=== PATIENT | male | born 1965 ===

== ENCOUNTER 2022-11-13 09:43 | Inpatient (IN) ==
[2022-11-13] MEDS ORDERED: MoRPHine SULFATE 4 MG/ML 1 ML CARP\\VIAL IV STA (10:01)
[2022-11-13] MEDS ORDERED: ONDANSETRON INJ 2 MG/ML 2 ML VIAL IV STA (10:01)
[2022-11-13] MEDS ORDERED: SODIUM CHLORIDE 0.9% 1000ML 1,000 ML IV STA (10:01)
--- NOTE | 2022-11-13 10:06 | Emergency Department Note ---
Impression & Plan Acute renal failure (ARF), Bilateral ureteral calculi, Hematuria ED Provider Note Provider: Edu Funk MD DATE OF SERVICE: 11/13/2022 CHIEF COMPLAINT: Flank and abdominal pain, nausea, blood in urine HISTORY OF PRESENT ILLNESS: Patient is a 57-year-old gentleman history of CAD with stent, hypertension, kidney stones, splenectomy, and hyperlipidemia presenting here today with his sister. Patient is a refugee from [facility]. Has a history of kidney stones. Seen in the outpatient setting for this several months ago. Presenting today as yesterday and today developed worsening back pa in with abdominal distention more on the left side. No trauma reported. Some blood in the urine noted overnight. Took some ibuprofen last night which allowed him to sleep through the night. Denies any chest pain, fever, or URI symptoms. Denies any pain in the legs. Offer the patient formal translation services, however he declined and wished to use his sister for translation. PAST MEDICAL HISTORY: As noted above MEDICATIONS: Reviewed home medications but did not take anything this morning yet. SOCIAL HISTORY: Originally from [facility] and primarily speaks Montserrat[place] PHYSICAL EXAM: GENERAL: alert and oriented in no acute distress on stretcher Head: normocephalic and atraumatic EYES: No injection, discharge or icterus. NECK: Trachea midline. LUNGS: Airway patent. No retractions. Breath sounds clear HEART: Regular rate and rhythm. No chest wall tenderness ABDOMEN: Soft and non-tender, without guarding or rebound. BACK: No midline tenderness, no SI joint tenderness. Mild left flank tenderness SKIN: Acyanotic, warm, dry, without rashes EXTREMITIES: Without swelling, tenderness or deformity NEUROLOGICAL: No focal deficits. No aphasia. No facial droop or slurred speech. Ambulatory. PDMP was checked without noted issue. Patient's laboratory studies and imaging reviewed. Differential includes Renal colic, UTI, appendicitis, diverticulitis, mesenteric ischemia, aortic pathology, infections, inflammatory bowel disease, PUD, biliary pathology, as well as other pathologies. IMPRESSION/MEDICAL DECISION MAKING: Fairly benign abdomen. Some nausea and vomiting reported with back pain predominantly on the left. Question kidney stone given his history and the reported hematuria. We will check for urine infection. We will complete a CT abdomen pelvis to further delineate other possible etiologies and determine if stone is at play. Ultrasound result from records reviewed from June showed a significantly large stone. Has not seen urology here. Denies a history of intervention with the kidney in the past. Used ibuprofen last night but given some IV pain medication and nausea medicine here as well as IV fluids. Does not appear toxic. No sciatic symptoms reported and doubt this is spinal related. Blood work here without anemia with thrombocytosis of 834 as well as a significantly low white blood cell count 27. Chemistries with an acute kidney injury with an elevated creatinine of more than 6 today with normal potassium and sodium. Slight anion gap. Normal lipase and LFTs. Question of obstructive pathology causing the renal dysfunction. Sent for noncontrast CT scan given this finding. No evidence of fluid overload or hyperkalemia again noted. CT scan shows evidence of bilateral hydronephrosis with obstructing stones. Urine sample pending collection trace amount of blood only outputs at this point. Patient and sister updated at bedside. Patient will require admission with the significant renal dysfunction. Discussed with urology findings and they will plan the OR. Hospitalist will admit. DIAGNOSIS: Acute renal failure, bilateral obstructing ureteral stones DISPOSITION: Evaluated by the hospital Patient was agreeable with this plan. Past Med/Surg History Medical History (Updated 11/13/22 @ 11:48 by Jairo Haro MD) Kidney stones Surgical History (Updated 07/15/22 @ 09:57 by El Calix DO) Hx of splenectomy 1996 Family History (Updated 07/15/22 @ 09:24 by RAFAEL Walters) Denies family history of Ovarian cancer Prostate cancer Myocardial infarction Breast cancer Lung cancer Cancer Social History (Updated 07/15/22 @ 09:25 by RAFAEL Walters) Smoking Status: Never smoker Second Hand Exposure: No; Do You Dip or Chew Tobacco: No; Hx Substance Use: No Preferred Language: Mont[place]at[place] Visual Impairment: Partially Limited Hearing Ability: Normal Scrapper Required: Yes marital status: Current Living Situation: Family Feels Safe at Home: Yes Childhood Exposure to Second-Hand Smoke: Yes caffeine: No Dental Care, Regularly: Yes Physical Activity Frequency: 1-2 Times per Week Allergies Allergies Allergy/AdvReac Type Severity Reaction Status Date / Time No Known Allergies Allergy Verified 11/13/22 12:04 Home Meds Home Medications Medication Instructions Recorded Confirmed ibuprofen 200 mg tablet 400 mg PO Q6H PRN Pain 11/13/22 11/13/22 Previous Rx's Medication Instructions Recorded aspirin 81 mg tablet,delayed 81 mg PO DAILY #90 tabs 07/15/22 release bisoprolol fumarate 5 mg tablet 5 mg PO DAILY #90 tabs 07/15/22 nitroglycerin 0.4 mg sublingual 0.4 mg sublingual Q5M PRN chest 07/15/22 tablet pain #14 tabs simvastatin 40 mg tablet 40 mg PO DAILY #90 tabs 07/15/22 Results & Data (ED) Vital Signs Vital Signs - 24 hr 11/13/22 09:47 11/13/22 11:08 11/13/22 12:17 Temperature Source Temporal Artery Scan Pulse Rate 77 85 Pulse Rate [Apical] 81 Pulse Rhythm Regular Pulse Strength Normal Respiratory Rate 18 16 Respiratory Effort / Characteristics Non-Labored Spontaneous Non-Labored Respiratory Depth Normal Normal Respiratory Pattern Regular Blood Pressure 187/103 H Blood Pressure [Right Arm] 165/105 H Blood Pressure Mean 131 Blood Pressure Mean [Right Arm] 125 Blood Pressure Position Sitting Pulse Oximetry 97 96 Oxygen Delivery Method Room Air Sepsis Recent Fever Within 48 Hours No Sepsis New/Unexplained Change in Mental Status No Sepsis Action Taken by Nursing No Action Required Laboratory Data 11/13/22 10:05 11/13/22 10:05 Lab Results 11/13/22 11/13/22 11/13/22 Range/Units 10:05 10:05 11:04 WBC 27.20 H (4.8-10.8) K/ul RBC 5.80 (4.70-6.10) M/uL Hgb 17.1 (14.0-18.0) g/dl Hct 51.7 (42.0-52.0) % MCV 89.1 (80.0-100.0) fL MCH 29.5 (25.0-34.0) pg MCHC 33.1 (32.0-36.0) g/dL RDW Std Deviation 45.1 (36.4-46.3) fL RDW Coeff of Connie 13.9 (11.5-14.5) % Plt Count 834 H (130-400) K/uL MPV 11.4 (9.4-12.4) fL Immature Gran % (Auto) 1.0 % Neut % (Auto) 75.9 % Lymph % (Auto) 11.5 % [place] % (Auto) 10.2 % Eos % (Auto) 0.7 % Baso % (Auto) 0.7 % Neut # (Auto) 20.63 H (1.40-6.50) K/uL Lymph # (Auto) 3.12 (1.2-3.4) K/uL [place] # (Auto) 2.77 H (0.11-0.59) K/uL Eos # (Auto) 0.20 (0-0.50) K/uL Baso # (Auto) 0.20 (0-0.2) K/uL Immature Gran # (Auto) 0.28 H (0.01-0.20) K/uL Polychromasia 1+ Sodium 136 (136-145) mmol/L Potassium 5.0 (3.5-5.1) mmol/L Chloride 100 (98-107) mmol/L Carbon Dioxide 21 (21-32) mmol/L Anion Gap 15 H (3-11) BUN 58 H (6-23) mg/dl Creatinine 6.70 H* (0.6-1.4) mg/dl Est Cr Clr Drug Dosing 14.1 ml/min Est GFR ( Amer) 9.7 ml/min Est GFR (Non-Af Amer) 8.3 ml/min BUN/Creatinine Ratio 8.7 L (10-20) Glucose 104 H (70-99(Fasting)) mg/dl Calcium 10.0 (8.6-10.3) mg/dl Total Bilirubin 0.6 (0.2-1.0) mg/dl AST 18 (13-39) U/L ALT 15 (7-52) U/L Alkaline Phosphatase 97 (34-104) U/L Total Protein 8.5 H (6.0-8.3) gm/dl Albumin 4.3 (3.4-5.0) gm/dl Globulin 4.2 H (2.5-4.0) gm/dl Albumin/Globulin Ratio 1.0 (0.9-2) Lipase 26 (11-82) U/L SARS-CoV-2, RNA, NAAT NEGATIVE (NEGATIVE) Administered Medications Discontinued Medications Sodium Chloride (Nss 1000ml) 1,000 mls @ 999 mls/hr IV .Q1H1M STA Stop: 11/13/22 11:01 Last Infusion: 11/13/22 11:18 Dose: 0 mls/hr Documented By: Admin: 11/13/22 10:16 Dose: 999 mls/hr Documented By: NA Morphine Sulfate (Morphine Sulfate 4 Mg/Ml 1 Ml Carp\Vial) 4 mg IV NOW STA Stop: 11/13/22 10:02 Last Admin: 11/13/22 10:15 Dose: 4 mg Documented By: NA Ondansetron HCl (Ondansetron Inj 2 Mg/Ml 2 Ml Vial) 4 mg IV NOW STA Stop: 11/13/22 10:02 Last Admin: 11/13/22 10:15 Dose: 4 mg Documented By: NA Imaging Data Radiologist's Impression: Abdomen/Pelvis CT 11/13/22 10:[address] WITHOUT CONTRAST CT DOSE: 1062.57 mGy.cm HISTORY: L flank pain, hematuria, hx stone, JUN TECHNIQUE: Multiaxial CT images of the abdomen and pelvis were performed without contrast. A dose lowering technique was utilized adhering to the principles of ALARA. COMPARISON STUDY: Abdomen and pelvis CT 07/22/2022. FINDINGS: Mild interstitial thickening at the lung bases. No pneumoperitoneum. No pneumatosis. Old, healed left-sided rib fractures. The heart is mildly enlarged. The unenhanced liver, gallbladder, pancreas, left adrenal gland unremarkable. A normal spleen is not identified. Small nodules within the left upper quadrant likely represents residual splenic tissue. Moderate bilateral perinephric edema is noted. No left renal calculi. A 1.3 cm hypodense lesion within the right kidney is incompletely characters on this noncontrast study but favors a cyst. There is a large stone within the right renal pelvis measuring 2.9 x 2.9 cm in length extending into the lower pole infundibulum. 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 Multiple additional stones are seen within the lower pole of the right kidney measuring up to 1 cm. There are approximately 5 stones within the distal left ureter measuring up to 5 mm resulting in moderate left hydroureteronephrosis. There are at least 4 stones within the distal right ureter with the largest measuring 1 cm resulting in moderate right hydroureteronephrosis. Prominent retroperitoneal and periportal lymph nodes. These may be reactive. Moderate calcified plaque within the abdominal aorta which demonstrates mild aneurysmal dilatation measuring up to 3.1 cm. Bladder wall thickening may be due to underdistention. The prostate gland is mildly enlarged. There are few prominent bilateral external iliac lymph nodes measuring up to 13 mm in short axis diameter. Suboptimal evaluation for bowel pathology due to the lack of intravenous and oral contrast. Colonic dive rticulosis. No evidence for acute diverticulitis. No bowel wall thickening or obstruction. Normal appendix. IMPRESSION: 1. Multiple bilateral distal ureteral stones resulting in bilateral moderate hydroureteronephrosis. 2. Right-sided nephrolithiasis. 3. Bladder wall thickening which may be due to underdistention. Recommend correlation with urinalysis to exclude a cystitis. 4. Moderate bilateral perinephric edema/fat stranding which may be secondary to the hydronephrosis. A superimposed pyelonephritis would be difficult to exclude by imaging. 5. Mildly enlarged periportal, retroperitoneal, and pelvic lymph nodes which could be reactive. Consider follow-up abdomen and pelvis CT in 6 months to ensure resolution. 6. Cardiomegaly with mild interlobular septal thickening within the lung bases. This suggests mild congestive change. 7. Additional findings as described above. ACT 112: Negative or not required by law. Electronically signed by: Charly Morton M.D. 11/13/2022 11:24 AM Discharge Plan Visit Data Chief Complaint: Hematuria Stated Complaint: ABDOMINAL PAIN, BLOOD WITH URINATION ED Provider: Edu Funk Discharge Problem: Acute renal failure (ARF), Bilateral ureteral calculi, Hematuria Patient Disposition: Being Evaluated by Hospitalist Forms Stand Alone Forms: [facility] doForms Prescriptions Prescriptions: No Action aspirin 81 mg tablet,delayed release (DR/EC) 81 mg PO DAILY Qty: 90 3RF bisoprolol fumarate 5 mg tablet 5 mg PO DAILY Qty: 90 3RF simvastatin 40 mg tablet 40 mg PO DAILY Qty: 90 3RF nitroglycerin 0.4 mg tablet, sublingual 0.4 mg sublingual Q5M PRN (Reason: chest pain) Qty: 14 2RF Rx Instructions: do not exceed 3 doses per episode ibuprofen 200 mg Tablet 400 mg PO Q6H PRN (Reason: Pain) Referrals Referrals: El Calix DO [Primary Care Provider] - Acute renal failure (ARF) Qualifiers: Acute renal failure type: unspecified Qualified Code(s): N17.9 - Acute kidney failure, unspecified
[2022-11-13 10:38] LABS: Hematocrit (blood only) 51.7 % (42.0-52.0); Hemoglobin 17.1 g/dl (14.0-18.0); Mean Corpuscular Hemoglobin 29.5 pg (25.0-34.0); Mean Corpuscular Hgb Conc 33.1 g/dL (32.0-36.0); Mean Corpuscular Volume 89.1 fL (80.0-100.0); Mean Platelet Volume 11.4 fL (9.4-12.4); Platelet Count 834 K/uL (130-400); RDW Coefficient of Variation 13.9 % (11.5-14.5); RDW Standard Deviation 45.1 fL (36.4-46.3)
[2022-11-13 10:44] LABS: Albumin Level 4.3 gm/dl (3.4-5.0); BUN Creatinine Ratio 8.7 (10-20); Bilirubin,Total 0.6 mg/dl (0.2-1.0); Creatinine Clr Calc Pharmacy 14.1 ml/min; Est GFR (African American) 9.7 ml/min; Est GFR (Non-African American) 8.3 ml/min; Globulin 4.2 gm/dl (2.5-4.0); Total Protein 8.5 gm/dl (6.0-8.3)
[2022-11-13 10:45] LABS: Basophils % (auto) 0.7 %; Eosinophils % (auto) 0.7 %; Immature Granulocytes # (auto) 0.28 K/uL (0.01-0.20); Lymphocytes # (auto) 3.12 K/uL (1.2-3.4); Lymphocytes % (auto) 11.5 %; Monocytes # (auto) 2.77 K/uL (0.11-0.59); Monocytes % (auto) 10.2 %; Neutrophils # (auto) 20.63 K/uL (1.40-6.50); Neutrophils % (auto) 75.9 %; Polychromasia 1+
--- NOTE | 2022-11-13 11:25 | History & Physical Report ---
Date of Service November 13, 2022 Assessment & Plan (1) Acute renal failure due to urinary obstruction: Plan: Nephrolithiasis, chronic with acute obstruction With leukocytosis of 27.2 with neutrophilic predominance and increased immature cells - CT-A/P: 1. Multiple bilateral distal ureteral stones resulting in bilateral moderate hydroureteronephrosis.2. Right-sided nephrolithiasis. 3. Bladder wall thickening which may be due to underdistention. Recommend correlation with urinalysis to exclude a cystitis.4. Moderate bilateral perinephric edema/fat stranding which may be secondary to the hydronephrosis. A superimposed pyelonephritis would be difficult to exclude by imaging.5. Mildly enlarged periportal, retroperitoneal, and pelvic lymph nodes which could be reactive. Consider follow-up abdomen and pelvis CT in 6 months to ensure resolution.6. Cardiomegaly with mild interlobular septal thickening within the lung bases. This suggests mild congestive change.7. Additional findings as described above. Platelet count 834 likely reactive -Given underlying leukocytosis, some chills overnight, and infected appearing UA we will treat for concurrent UTI with Rocephin - Uro consulted for cystoscopy/stent ARF, acute unstable Suspect obstructive acute renal failure, admitting creatinine 6.70 Last creatinine 06/2022 baseline 1.16 No sodium derangements, patient is not overtly fluid overloaded but with the beginnings of congestive change noted on CT. No hypoxia Potassium upper limit of normal 5.0 Treatment of underlying obstruction as otherwise noted. If not improving post obstruction relief, consult nephrology Defer Lokelma BMP every 4 hours Complicated UTI, acute unstable Infected appearing UA, leukocytosis In the setting of obstructive uropathy/nephrolithiasis Continue Rocephin UCx pending CAD, history of PCI, chronic stable Continue aspirin 81 mg daily Continue simvastatin 40 mg daily? Benefit of conversion high-dose on discharge. 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 T waves are not peaked Patient is clinically without chest pain, chest pressure, exertional angina, shortness of breath at any point in the last week Hemoglobin 17.1 on admission Continue aspirin, bisoprolol. Resume simvastatin/valsartan postoperatively Given concurrent acute renal failure with cardiac history we will follow patient on medical telemetry at this time Patient's family will bring in stent card. Unclear type of stent or territory, this was placed in 2018 in the [facility] Traumatic splenectomy, chronic stable In distant past, abdomen surgical site well-healed No complications of this per patient DVT prophylaxis: SCDs, heparin post procedure due to JUN Diet: N.p.o. pending surgical evaluation/cystoscopy Disposition: Medical telemetry CODE STATUS: Full code (2) Bilateral ureteral calculi: (3) HLD (hyperlipidemia): (4) Presence of stent in coronary artery in patient with coronary artery disease: (5) Hypertension: (6) Complicated UTI (urinary tract infection): History of Present Illness Primary Care Provider: DO Jose Alberto Mendoza is a 57-year-old male [place] refugee who speaks [place] requiring translation assistance with a past medical history of CAD s/p PCI, hypertension, nephrolithiasis, splenectomy, hyperlipidemia who presents for worsening back and flank pain left greater than the right worsening over the last 48 hours. Patient has declined translation services and wishes for her sister to translate. Pt reports came to the [facility] in April, is a refugee. Has been told he has kidney rocks int h epast, but no obstructive problems. Had ultrasound in June and was found to have kidney stones which were large, but nonosbtructive. Sees PCP at [facility]. Current symptoms include pain in the back with blood in the urine started about 3 days ago. Progressively worsening pain in the back, flank, and low abdomen worsening over the last 2 days. No fevers, +nausea, +vomiting, +shaking chills last night. No diarrhea. yesterday was able to pee, stopped being this morning an dincreased pain. Small amounts of blood passing. Hx of CAD with PCI. Had 1 stend 2018 in [facility]. Has a stent card at home. - Was on bisprolol, aspirin, simvastatin, valsartan. 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 Did not take medications this morning Surgical History: Reviewed. splenectomy post traumatic. Family history: Reviewed Allergies: Reviewed. NKDA. Social History: No tobacco product use, no alochol use. Code Status: Full Code Allergies Allergy/AdvReac Type Severity Reaction Status Date / Time No Known Allergies Allergy Verified 11/05/22 08:46 Home Medications Medication Instructions Recorded Confirmed Type aspirin 81 mg tablet,delayed 81 mg PO DAILY #90 tabs 07/15/22 11/05/22 Rx release bisoprolol fumarate 5 mg tablet 5 mg PO DAILY #90 tabs 07/15/22 11/05/22 Rx nitroglycerin 0.4 mg sublingual 0.4 mg sublingual Q5M PRN chest 07/15/22 11/05/22 Rx tablet pain #14 tabs simvastatin 40 mg tablet 40 mg PO DAILY #90 tabs 07/15/22 11/05/22 Rx valsartan 160 mg tablet 160 mg PO DAILY #90 tabs 07/15/22 11/05/22 Rx Past Med/Surg History Medical History (Updated 11/13/22 @ 11:48 by Jairo Haro MD) Kidney stones Surgical History (Updated 07/15/22 @ 09:57 by El Calix DO) Hx of splenectomy 1997 Family History (Updated 07/15/22 @ 09:24 by RAFAEL Walters) Denies family history of Ovarian cancer Prostate cancer Myocardial infarction Breast cancer Lung cancer Cancer Social History (Updated 07/15/22 @ 09:25 by RAFAEL Walters) Smoking Status: Never smoker Second Hand Exposure: No; Do You Dip or Chew Tobacco: No; Hx Substance Use: No Preferred Language: [facility] Visual Impairment: Partially Limited Hearing Ability: Normal Dough Sheeter Required: Yes marital status: Current Living Situation: Family Feels Safe at Home: Yes Childhood Exposure to Second-Hand Smoke: Yes caffeine: No Dental Care, Regularly: Yes Physical Activity Frequency: 1-2 Times per Week Review of Systems Review of Systems: All systems reviewed & are unremarkable except as noted in HPI & below Physical Exam Physical Exam: General: A&Ox3. NAD. Cooperative. Patient is non-Spanish speaking, speaks Maori. 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 HEENT: Atraumatic, normocephalic. Vision/hearing grossly intact Pulm: CTAB A&P. Trace basilar crackles, otherwise-wheezes, -rales, -rhonchi. Symmetrical chest rise. No increased work of breathing. No respiratory distress. Cardiac: RRR, -mrg. Radial pulses intact and symmetrical. Abdominal: Midline scar from past splenectomy well-healed. Tender to palpation in right lower quadrant. Upper quadrants nontender. Abdomen is soft and without rebound/guarding. Flank pain bilaterally right greater than left Extremities: Warm, dry. No pitting edema Results & Data Results & Data Vital Signs (Past 12 Hours) Vital Signs Pulse Pulse Resp BP BP Pulse Ox O2 Del Method 11/13/22 11:08 81 16 165/105 H 96 11/13/22 09:47 77 18 187/103 H 97 Room Air PG Care Time/CCT Total # of Minutes Spent Total Time Spent with Patient: Total time spent is greater than 50% in coordination of care (as documented) at patient's floor/unit and/or counseling patient: Coding Level of Care Code 39184 INT INP/OBS CARE 3/75MIN Diagnoses Acute renal failure due to urinary obstruction N17.9; N13.9 Bilateral ureteral calculi N20.1 HLD (hyperlipidemia) E78.5 Presence of stent in coronary artery in patient with coronary artery disease I25.10; Z95.5 Hypertension I10 Complicated UTI (urinary tract infection) N39.0
--- NOTE | 2022-11-13 11:26 | CT Scan Report ---
ABDOMEN AND PELVIS CT WITHOUT CONTRAST CT DOSE: 1062.57 mGy.cm HISTORY: L flank pain, hematuria, hx stone, JUN TECHNIQUE: Multiaxial CT images of the abdomen and pelvis were performed without contrast. A dose lo wering technique was utilized adhering to the principles of ALARA. COMPARISON STUDY: Abdomen and pelvis CT 07/22/2022. FINDINGS: Mild interstitial thickening at the lung bases. No pneumoperitoneum. No pneumatosis. Old, h ealed left-sided rib fractures. The heart is mildly enlarged. The unenhanced liver, gallbladder, panc reas, left adrenal gland unremarkable. A normal spleen is not identified. Small nodules within the le ft upper quadrant likely represents residual splenic tissue. Moderate bilateral perinephric edema is noted. No left renal calculi. A 1.3 cm hypodense lesion within the right kidney is incompletely gretel cters on this noncontrast study but favors a cyst. There is a large stone within the right renal pelv is measuring 2.9 x 2.9 cm in length extending into the lower pole infundibulum. This appears to repre sent a partial staghorn calculus. Multiple additional stones are seen within the lower pole of the ri ght kidney measuring up to 1 cm. There are approximately 5 stones within the distal left ureter measu ring up to 5 mm resulting in moderate left hydroureteronephrosis. There are at least 4 stones within the distal right ureter with the largest measuring 1 cm resulting in moderate right hydroureteronephr osis. Prominent retroperitoneal and periportal lymph nodes. These may be reactive. Moderate calcified plaque within the abdominal aorta which demonstrates mild aneurysmal dilatation measuring up to 3.1 cm. Bladder wall thickening may be due to underdistention. The prostate gland is mildly enlarged. The re are few prominent bilateral external iliac lymph nodes measuring up to 13 mm in short axis diamete r. Suboptimal evaluation for bowel pathology due to the lack of intravenous and oral contrast. Coloni c diverticulosis. No evidence for acute diverticulitis. No bowel wall thickening or obstruction. Norm al appendix. IMPRESSION: 1. Multiple bilateral distal ureteral stones resulting in bilateral moderate hydroureteronephrosis. 2. Right-sided nephrolithiasis. 3. Bladder wall thickening which may be due to underdistention. Recommend correlation with urinalysis to exclude a cystitis. 4. Moderate bilateral perinephric edema/fat stranding which may be secondary to the hydronephrosis. A superimposed pyelonephritis would be difficult to exclude by imaging. 5. Mildly enlarged periportal, retroperitoneal, and pelvic lymph nodes which could be reactive. Consi laney follow-up abdomen and pelvis CT in 6 months to ensure resolution. 6. Cardiomegaly with mild interlobular septal thickening within the lung bases. This suggests mild co ngestive change. 7. Additional findings as described above. ACT 112: Negative or not required by law. Electronically signed by: Charly Morton M.D. 11/13/2022 11:24 AM
--- NOTE | 2022-11-13 12:34 | Urology Consultation ---
Date of Consultation November 13, 2022 Assessment & Plan (1) Acute renal failure due to urinary obstruction: (2) Bilateral ureteral calculi: 57-year-old male from [facility] with history of kidney stones presented to the emergency department today with worsening back pain, hematuria and difficulty voiding and has been admitted for bilateral obstructing stones and acute renal failure. - He is nontoxic, hemodynamically stable. - Labs reviewed -creatinine 6.70, WBC 27.20, hemoglobin 17.1. - No urinalysis at time of exam. - He was treated with IV Rocephin in ED. CT a/p on arrival independently reviewed and notable for multiple bilateral distal ureteral stones resulting in bilateral moderate hydroureteronephrosis, right-sided nephrolithiasis; moderate bilateral perinephric edema noted. CT findings reviewed with patient and family. Discussed recommendation to proceed with bilateral ureteral stent placement emergently due to bilateral obstructing stones and acute renal failure. Patient and family are understanding and wish to proceed with surgery. Proceed with Cystoscopy, bilateral retrograde pyelogram, and bilateral ureteral stent placement. Risks and benefits to be reviewed with patient by Dr. Lee. OR notified. Patient was treated with Rocephin preoperatively. Keep NPO. Attending note: Independently evaluated, examined, interviewed, and assessed, agree with above. Discussed findings and concerns. Discussed bilateral obstruction. Discussed large stone burden especially on the right. Discussed need for intervention in order to manage the acute renal failure. Discussed bilateral obstruction and possible anuria with major concerns about possible electrolyte and fluid management issues. Discussed possibility of severe infection. Discussed possibility of pyelonephritis. Reviewed extensively options with patient and patient's family. Patient has limited Kosovan language knowledge and relied on assistance with the family in order to discuss issues and to assist with asking and answering any questions. Patient's imaging was reviewed interpreted by myself. It is currently not having severe fevers. Pulse is 85. Blood pressure 165/105. Imaging is showing bilateral distal obstructing stones with large stone burden on right side. Patient's labs were all reviewed. White count was 27.2. Creatinine is up to 6.7. Patient had a COVID test which was negative. Extensive conversation. Patient's past medical history as well as possible issues and surgical Gtao were all reviewed. Reviewed concerns and issues moving forward. Risks and benefits discussed at length for procedure. These include bleeding, infection, injury to surrounding tissues or organs, and risks associated with anesthesia. Patient states understanding and agrees to proceed. Will sign consent and schedule. Plan for cystoscopy with bilateral stents. History of Present Illness Reason for Consultation: obstructive, ARF Attending Physician: Dr. Haro History of Present Illness This is a 57-year-old male from [facility] with history of CAD with stent, hypertension, kidney stones, splenectomy, and hyperlipidemia who presented to the emergency department on 11/13/2022 with worsening back pain and abdominal distention, hematuria and difficulty voiding. He was hypertensive on arrival, otherwise hemodynamically stable. Lab work reviewed and showed creatinine 6.70, Potassium 5.0, WBC 27.20, hemoglobin 17.1. No urinalysis at this time. CT a/p notable for multiple bilateral distal ureteral stones resulting in bilateral moderate hydroureteronephrosis, right- sided nephrolithiasis; moderate bilateral perinephric edema noted. ED course included IV fluids, morphine, ondansetron and 2 g of Rocephin. He has been admitted to the medicine service for acute renal failure and bilateral obstructing stones. Urology is consulted for obstructive ARF. Patient seen and examined in the emergency department. He is awake and resting in litter. Family at bedside who assist with translation per patient's request. He reports bilateral back pain left greater than right, currently rated 5 out of 10 pain. No nausea or vomiting at present. No fever or chills. He has been unable to void yet today. Reports hematuria starting last night. Last ate yesterday evening. Reports prior history of kidney stones with spontaneous passage. No prior surgical intervention for stones. No additional concerns today. Allergies Allergy/AdvReac Type Severity Reaction Status Date / Time No Known Allergies Allergy Verified 11/13/22 12:04 Home Medications Medication Instructions Recorded Confirmed Type aspirin 81 mg tablet,delayed 81 mg PO DAILY #90 tabs 07/15/22 11/13/22 Rx release bisoprolol fumarate 5 mg tablet 5 mg PO DAILY #90 tabs 07/15/22 11/13/22 Rx nitroglycerin 0.4 mg sublingual 0.4 mg sublingual Q5M PRN chest 07/15/22 11/13/22 Rx tablet pain #14 tabs simvastatin 40 mg tablet 40 mg PO DAILY #90 tabs 07/15/22 11/13/22 Rx ibuprofen 200 mg tablet 400 mg PO Q6H PRN Pain 11/13/22 11/13/22 History Patient History Medical History Kidney stones Surgical History Hx of splenectomy 1997 Family History Denies family history of Ovarian cancer Prostate cancer Myocardial infarction Breast cancer Lung cancer Cancer Social History Smoking Status: Never smoker Second Hand Exposure: No; Do You Dip or Chew Tobacco: No; Hx Substance Use: No Preferred Language: Lao Visual Impairment: Partially Limited Hearing Ability: Normal Medical Assistant Per Diem Required: Yes marital status: Current Living Situation: Family Feels Safe at Home: Yes Childhood Exposure to Second-Hand Smoke: Yes caffeine: No Dental Care, Regularly: Yes Physical Activity Frequency: 1-2 Times per Week Review of Systems Review of Systems: All systems reviewed & are unremarkable except as noted in HPI & below Physical Exam Constitutional: well developed and well nourished; no acute distress and not ill appearing Eyes: no scleral abnormality Neck: normal visual inspection Respiratory: normal respiratory effort and able to speak in complete sentences; no respiratory distress and no labored breathing Cardiovascular: Extremities: no pedal edema Gastrointestinal (Abdomen): Inspection/Auscultation: abdomen normal to inspection; abdomen not distended Percussion/Palpation: abdomen soft; abdomen nontender and no guarding Musculoskeletal: Head/Neck/Chest: normocephalic and head atraumatic Skin: no rashes, warm and dry Neurologic: moves all extremities and awake Psychiatric: Orientation: alert, oriented x 3 and cooperative Genitourinary: no CVA tenderness Results & Data Vital Signs (Past 12 Hours) Vital Signs Pulse Pulse Resp BP BP Pulse Ox O2 Del Method 11/13/22 12:17 85 11/13/22 11:08 81 16 165/105 H 96 11/13/22 09:47 77 18 187/103 H 97 Room Air PG Care Time/CCT Total # of Minutes Spent Total Time Spent with Patient: Total time spent is greater than 50% in coordination of care (as documented) at patient's floor/unit and/or counseling patient: Coding Level of Care Code 40818 IN/OBS CONSULT LVL 5,80M Diagnoses Acute renal failure due to urinary obstruction N17.9; N13.9 Bilateral ureteral calculi N20.1
[2022-11-13] MEDS ORDERED: cefTRIAXone SODIUM 2000MG/70ML D5W IV STA (13:26)
[2022-11-13] MEDS ORDERED: HYDROmorphone INJ 1 MG/ML SYRINGE IV PRN ×2 (14:13→18:14)
[2022-11-13] MEDS ORDERED: ONDANSETRON INJ 2 MG/ML 2 ML VIAL IV PRN ×2 (14:13→18:14)
[2022-11-13] MEDS ORDERED: ePHEDrine sulfate 50 MG/ML AMP IV PRN (14:13)
[2022-11-13] MEDS ORDERED: ATROPINE SULFATE 0.1 MG/ML 10ML SYR IV PRN (14:13)
[2022-11-13] MEDS ORDERED: fentaNYL citrate PF 100 MCG/2 ML VIAL IV PRN (14:13)
--- NOTE | 2022-11-13 14:14 | Anesthesiology Consultation ---
Date of Service November 13, 2022 Assessment & Plan ASA ASA3 Proposed Anesthesia Anesthesia Type: General Risk / Benefits Reviewed With: PT / POA / Parent / Guardian, Accepts Plan and Informed Consent Obtained History Surgery Operation Date: 11/13/22 14:45 Proposed Procedures p Cystoscopy Bilateral Retrograde Pyelogram Bilateral Placement Placement - Sekou Lee DO Height/Weight Height: 5 ft 10.08 in Weight: 95.8 kg Allergies Allergy/AdvReac Type Severity Reaction Status Date / Time No Known Allergies Allergy Verified 11/13/22 12:04 Medications Home Medications Medication Instructions Recorded Confirmed Last Taken aspirin 81 mg tablet,delayed 81 mg PO DAILY #90 tabs 07/15/22 11/13/22 Unknown release bisoprolol fumarate 5 mg tablet 5 mg PO DAILY #90 tabs 07/15/22 11/13/22 Unknown nitroglycerin 0.4 mg sublingual 0.4 mg sublingual Q5M PRN chest 07/15/22 11/13/22 Unknown tablet pain #14 tabs simvastatin 40 mg tablet 40 mg PO DAILY #90 tabs 07/15/22 11/13/22 Unknown ibuprofen 200 mg tablet 400 mg PO Q6H PRN Pain 11/13/22 11/13/22 Unknown NPO Date Last Intake of Fluids: 11/12/22 Time Last Intake of Fluids: 00:00 Last Intake of Fluids Comment: sip water 1200 Date Last Intake of Solids: 11/12/22 Time Last Intake of Solids: 00:00 Past Medical History Medical History Kidney stones Exercise / Class Metabolic Activity II 4-5 Yardwork/Stairs/Walk up hill Past Family History Family History Denies family history of Ovarian cancer Prostate cancer Myocardial infarction Breast cancer Lung cancer Cancer Past Surgical History Surgical History Hx of splenectomy 1996 Past Anesthesia History No Hx of Anesthesia Complications and No Family Hx of Anesthesia Complications History of PONV No Hx of PONV and No Hx of Motion Sickness Social History Smoking Status: Never smoker Do You Dip or Chew Tobacco: No Hx Substance Use: No Review of Systems denies fever/cough/ colds/ chest pain/ SOB/ AJ denies AJ Physical Exam Vital Signs Last Vital Signs Temp 37.1 C 11/13/22 12:57 Pulse 81 11/13/22 12:57 Resp 20 11/13/22 12:57 BP 148/95 H 11/13/22 12:57 Pulse Ox 96 11/13/22 12:57 O2 Del Method Room Air 11/13/22 12:57 ENMT Mouth: no TMJ abnormality and no dentition abnormality Thyromental Distance: > or= 3.5 Finger Breadths Mallampati Class: II Neck neck extension not limited Respiratory normal respiratory effort; no respiratory distress Auscultation: lungs clear to auscultation bilaterally Cardiovascular Rate/Rhythm: regular rate and regular rhythm Neurologic moves all extremities Psychiatric Orientation: alert and oriented x 3 Testing Laboratory Results 11/13/22 10:05 11/13/22 10:05
--- NOTE | 2022-11-13 15:06 | Electrocardiogram Report ---
Test Reason : Blood Pressure : / mmHG Vent. Rate : 081 BPM Atrial Rate : 081 BPM P-R Int : 156 ms QRS Dur : 104 ms QT Int : 398 ms P-R-T Axes : 049 -40 060 degrees QTc Int : 462 ms Normal sinus rhythm Left axis deviation Minimal voltage criteria for LVH, may be normal variant Inferior infarct , age undetermined Anterolateral infarct , age undetermined Abnormal ECG No previous ECGs available Confirmed by Asif Adamson ([id number]) on 11/13/2022 3:06:22 PM Referred By: REFERRED SELF Confirmed By:Hao Adamson
[2022-11-13] MEDS ORDERED: PROPOFOL IV EMULSION 10 MG/ML 20 ML VIAL IV ONE (15:41)
[2022-11-13] MEDS ORDERED: MIDAZOLAM HCL 1 MG/ML 2ML VIAL ONE (16:37)
[2022-11-13] MEDS ORDERED: fentaNYL citrate PF 100 MCG/2 ML VIAL ONE (16:37)
[2022-11-13] MEDS ORDERED: ceFAZolin 330 MG/ML 1 GM VIAL ONE ×2 (16:56)
--- NOTE | 2022-11-13 17:16 | Operative Report ---
PG Post Operative Report Pre & Post Diagnosis Operation Date: 11/13/22 13:15 Pre-Op Diagnosis: Bilateral Obstructing Stone. Anuria Post-Op Diagnosis: Bilateral obstructing stones I identified the patient and participated in the time-out.: Yes Procedure Operation Date: 11/13/22 13:15 Actual Procedures p Cystoscopy with Bilateral Retrograde Pyelogram and Bilateral stent Placement(Bilateral) - Sekou Lee DO Surgeon Sekou Lee, II, DO Cook Helper Fruit None Estimated Blood Loss 1 Findings Consistent with Post-Op Diagnosis Stents placed in good position. Bilateral hydroureteronephrosis Severe obstruction of right and obstruction of left. Considerable manipulation to place right wire. Specimens None Drains 6 Fr Multilength Bilateral Anesthesia Type MAC Complications none Disposition Disposition: Recovery Room Indications Patient with obstruction. Risks and benefits discussed at length. Description of Procedure Patient was consented and brought back to the operating room. Patient was placed under anesthesia in the supine position and moved to the dorsal lithotomy position. Patient was prepped and draped in the regular sterile fashion. A time out was completed. A 30degree Cystoscope was placed into the bladder and the entire bladder was examined. The bladder appeared inflammed with areas of irritation. No masses. Bilaterally the UO were irritated. The UO's were identified. The UO was cannulized with a catheter and a retrograde pyelogram was completed. Hydroureter was noted. Starting on the right, A wire was then placed. Considerable manipulation was needed to advance the wire. Once in the renal pelvis, a dual lumen catheter was used to complete a fully retrograde pyelogram. With the wire in place, a 6 Fr Double J stent was placed. Immediately a large amount of red and cloudy urine was draining from the kidney on the right side. It appeared to be concentrated and likely was at this point completely obstructed on the right. A number of what appeared to be stones were noted within the ureter and renal pelvis on the retrograde pyelogram. Attention was then taken to the left side. A dual-lumen catheter was used to cannulate the ureteral orifice. At this point a retrograde pyelogram was completed. A wire was then able to be placed. Only minor manipulation was necessary in order to place the wire on the side. Once the wire was advanced a assessment was taken the wire appeared to be well-placed within the renal pelvis. The left side had also considerable hydronephrosis and hydroureter. The wire remained in place and a 6 Icelandic multilength stent was placed over the wire into the renal pelvis. It was confirmed with fluoroscopy. With the stents in place, the bladder was emptied. The scope was removed. The patient was cleaned, aroused from anesthesia, and transferred to the pacu in stable condition having tolerated the procedure well with no complications. I was present and participated in all aspects of the procedure. The patient will be monitored in the PACU until transferred. We will plan to have the patient transferred back to the floor for monitoring. We will need to monitor electrolytes for possible postobstructive diuresis. Patient will likely have a considerable amount of urine output and will need to monitor over time. We will monitor for resolution of the severe JUN. We will likely need to consider different options for treatment of stones due to the large burden. We will allow approximately 1 to 2 weeks for patient to recover from the severe obstruction and plan for possible stone treatment especially considering the extremely large amount on the right side. I attest to the content of the Intraoperative Record and any orders documented therein. Any exceptions are noted below.
[2022-11-13] MEDS ORDERED: DIATRIZOATE MEGLUMINE 30% 100ML VIAL INSTIL PRN (17:18)
--- NOTE | 2022-11-13 17:30 | Anesthesiology Progress Note ---
Date of Service November 13, 2022 Anesthesia Post Procedure Vital Signs Vital Signs: Temp Pulse Pulse Pulse Resp BP BP 11/13/22 12:57 37.1 C 81 20 148/95 H 11/13/22 12:17 85 11/13/22 11:08 81 16 165/105 H 11/13/22 09:47 77 18 187/103 H Pulse Ox O2 Del Method 11/13/22 12:57 96 Room Air 11/13/22 12:17 11/13/22 11:08 96 11/13/22 09:47 97 Room Air Pain Intensity Abdomen: Pain Intensity: 4 Transfer of Care Handoff Completed per policy Notes Mental Status: alert / awake / arousable and participated in evaluation Patient Amnestic to Procedure: Yes Nausea / Vomiting: adequately controlled Pain: adequately controlled Airway Patency, RR, SpO2: stable & adequate BP & HR: stable & adequate Hydration State: stable & adequate Anesthetic Complications: no major complications apparent and Pt Satisfied with anesthetic care
[2022-11-13] MEDS ORDERED: ACETAMINOPHEN 1,000 MG/100 ML VIAL IV PRN (18:14)
[2022-11-13] MEDS ORDERED: HYDROmorphone INJ 0.5 MG/0.5 ML SYR IV PRN (18:14)
--- NOTE | 2022-11-13 18:39 | Fluoroscopy Report ---
FL retrograde includes kub CLINICAL HISTORY: B/L URETERAL STENT PLACEMENT COMPARISON STUDY: Abdomen and pelvis CT 11/13/2022. FLUOROSCOPY TIME: 32.8 seconds FLUOROSCOPY IMAGES: 8 Ka,r: 8.4 mGy FINDINGS: Retrograde opacification of the bilateral renal collecting systems followed by placement of bilateral ureteral stents. The ureteral stents appear and good position. Multiple filling defects se en within the distal left ureter likely representing the patient's known stones versus gas bubbles. IMPRESSION: Fluoroscopic assistance as above. ACT 112: Negative or not required by law. Electronically signed by: Charly Morton M.D. 11/13/2022 6:37 PM
[2022-11-13 18:54] LABS: BUN Creatinine Ratio 8.6 (10-20); Calcium 9.2 mg/dl (8.6-10.3); Creatinine Clr Calc Pharmacy 13.9 ml/min; Est GFR (African American) 9.4 ml/min; Est GFR (Non-African American) 8.1 ml/min; Potassium 5.1 mmol/L (3.5-5.1)
[2022-11-13] MEDS: BISOPROLOL FUMARATE 5 MG TAB PO SCH (20:04)
[2022-11-13 23:46] LABS: BUN Creatinine Ratio 10.2 (10-20); Calcium 9.4 mg/dl (8.6-10.3); Est GFR (Non-African American) 10.3 ml/min; Potassium 4.4 mmol/L (3.5-5.1)
[2022-11-14 03:08] LABS: BUN Creatinine Ratio 10.9 (10-20); Calcium 9.2 mg/dl (8.6-10.3); Creatinine Clr Calc Pharmacy 17.8 ml/min; Est GFR (African American) 12.7 ml/min; Potassium 4.7 mmol/L (3.5-5.1)
[2022-11-14 04:53] LABS: Hematocrit (blood only) 46.2 % (42.0-52.0); Hemoglobin 15.4 g/dl (14.0-18.0); Mean Corpuscular Hemoglobin 29.5 pg (25.0-34.0); Mean Corpuscular Hgb Conc 33.3 g/dL (32.0-36.0); Mean Corpuscular Volume 88.5 fL (80.0-100.0); RDW Coefficient of Variation 13.8 % (11.5-14.5); RDW Standard Deviation 43.9 fL (36.4-46.3); Red Blood Count 5.22 M/uL (4.70-6.10)
[2022-11-14 04:54] LABS: Mean Platelet Volume 11.3 fL (9.4-12.4); Platelet Count 804 K/uL (130-400)
[2022-11-14 05:11] LABS: Basophils # (auto) 0.18 K/uL (0-0.2); Basophils % (auto) 0.8 %; Eosinophils # (auto) 0.35 K/uL (0-0.50); Eosinophils % (auto) 1.6 %; Immature Granulocytes # (auto) 0.23 K/uL (0.01-0.20); Lymphocytes # (auto) 3.23 K/uL (1.2-3.4); Lymphocytes % (auto) 14.4 %; Monocytes # (auto) 1.89 K/uL (0.11-0.59); Monocytes % (auto) 8.4 %; Neutrophils # (auto) 16.51 K/uL (1.40-6.50); Neutrophils % (auto) 73.8 %; Polychromasia 1+; White Blood Count 22.39 K/ul (4.8-10.8)
[2022-11-14 05:25] LABS: BUN Creatinine Ratio 12.6 (10-20); Calcium 8.9 mg/dl (8.6-10.3); Creatinine Clr Calc Pharmacy 21.1 ml/min; Est GFR (African American) 15.6 ml/min; Est GFR (Non-African American) 13.5 ml/min; Potassium 4.7 mmol/L (3.5-5.1)
[2022-11-14 05:56] LABS: Appearance Urine Cloudy (Clear); Bacteria Urine Automated Negative (Negative); Bilirubin Urine Negative (Negative); Blood Urine 3+ (Negative); Color Urine Yellow; Epithelial Cell Urine Auto 20-30 /lpf (0-5); Glucose Urine UA Negative (Negative); Ketones Urine Negative (Negative); Leukocyte Esterase Urine 1+ (Negative); Nitrite Urine Negative (Negative); Protein Urine 1+ (Negative); RBC Urine Automated >30 /hpf (0-4); Urobilinogen Urine Negative (Negative); WBC Urine Automated >30 /hpf (0-5)
--- NOTE | 2022-11-14 10:02 | Urology Progress Note ---
Date of Service November 14, 2022 Assessment & Plan (1) Bilateral ureteral calculi: (2) Acute renal failure (ARF): Plan: 57-year-old male from [facility] with history of kidney stones presented to the emergency department 11/13/22 with worsening back pain, hematuria and difficulty voiding and has been admitted for bilateral obstructing stones and acute renal failure. - Pt POD#1 s/p cystoscopy, bilateral retrograde pyelogram and bilateral ureteral stent placement with Dr. Lee. - Doing well, progressing as expected. - Afebrile, lab work reviewed - creatinine trending down (4.51 today), WBC improved to 22.39. - Continue to trend labs. - Urine culture is pending, remains on IV ceftriaxone -follow culture. - Tolerating bilateral ureteral stents with minimal bother. - He is voiding spontaneously and UOP appears adequate. - Recommend monitor voiding and bladder scan prn. - Can give Flomax and prn Ditropan for stent discomfort. - Urology will continue to follow and set up outpatient follow-up for stone treatment upon discharge. Admission and Anticipated Discharge Date Admission Date: November 13, 2022 Subjective Patient seen and examined at bedside this morning. iPad collection team lead service utilized for communication. No acute complaints. He has some mild flank discomfort. He is voiding spontaneously without difficulty. Reports dark urine but not bloody. No nausea or vomiting. No fever or chills. Review of Systems Constitutional: as per Subjective / HPI Gastrointestinal: as per Subjective / HPI Genitourinary: + as per Subjective / HPI Physical Exam Constitutional: well developed and well nourished; no acute distress Respiratory: normal respiratory effort; no respiratory distress and no labored breathing Gastrointestinal (Abdomen): Inspection/Auscultation: abdomen normal to inspection; abdomen not distended Musculoskeletal: Head/Neck/Chest: normocephalic Neurologic: moves all extremities and awake Psychiatric: Orientation: alert and oriented x 3 Results & Data Vital Signs (Past 12 Hours) Vital Signs Temp Pulse Pulse Resp BP Pulse Ox O2 Del Method 11/14/22 07:41 36.7 C 71 18 115/73 95 Room Air 11/14/22 03:00 36.5 C 58 L 16 126/78 96 Room Air 11/13/22 22:00 69 11/13/22 22:44 36.4 C L 69 18 125/79 94 Room Air PG Care Time/CCT Total # of Minutes Spent Total Time Spent with Patient: Total time spent is greater than 50% in coordination of care (as documented) at patient's floor/unit and/or counseling patient: Coding Level of Care Code 95843 SUB INP/OBS CARE 125MIN Diagnoses Bilateral ureteral calculi N20.1 Acute renal failure (ARF) N17.9 Acute renal failure type: unspecified (2) Acute renal failure (ARF) Acute renal failure type: unspecified Qualified Code(s): N17.9 - Acute kidney failure, unspecified
[2022-11-14] MEDS: SIMVASTATIN 40 MG TAB PO SCH (10:06)
[2022-11-14] MEDS: ASPIRIN 81 MG ECTAB PO SCH (10:06)
[2022-11-14] MEDS: BISOPROLOL FUMARATE 5 MG TAB PO SCH (10:06)
--- NOTE | 2022-11-14 10:35 | Discharge Summary ---
Date of Service November 14, 2022 Admission HPI Per Admitting Provider Jose Alberto is a 57-year-old male [place] refugee who speaks Nauruan requiring translation assistance with a past medical history of CAD s/p PCI, hypertension, nephrolithiasis, splenectomy, hyperlipidemia who presents for worsening back and flank pain left greater than the right worsening over the last 48 hours. Patient has declined translation services and wishes for her sister to translate. Pt reports came to [place] in [place], is a refugee. Has been told he has kidney rocks int h epast, but no obstructive problems. Had ultrasound in June and was found to have kidney stones which were large, but nonosbtructive. Sees PCP at [facility]. Current symptoms include pain in the back with blood in the urine started about 3 days ago. Progressively worsening pain in the back, flank, and low abdomen worsening over the last 2 days. No fevers, +nausea, +vomiting, +shaking chills last night. No diarrhea. yesterday was able to pee, stopped being this morning an dincreased pain. Small amounts of blood passing. Hx of CAD with PCI. Had 1 stend 2017 in [facility]. Has a stent card at home. - Was on bisprolol, aspirin, simvastatin, valsartan. 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 Did not take medications this morning Surgical History: Reviewed. splenectomy post traumatic. Family history: Reviewed Allergies: Reviewed. NKDA. Social History: No tobacco product use, no alochol use. Code Status: Full Code Discharge Data Allergies Allergy/AdvReac Type Severity Reaction Status Date / Time No Known Allergies Allergy Verified 11/13/22 12:04 Consultations 11/13/22 11:54 Consult Urology Stat 11/13/22 12:00 ED Decision to Admit Stat Procedures Performed Operation Date: 11/13/22 13:15 Actual Procedures p Cystoscopy, Bilateral Retrograde Pyelogram, Bilateral stent Placement(Bilateral) - Sekou Lee, DO Ordered Studies 11/13/22 FL retrograde includes kub Routine 11/13/22 10:43 CT abd pelvis wo con Stat Total Time Total Time Spent Total Time Spent (In Minutes): <30 Discharge Plan Discharge Items Patient Disposition: Home - Self-Care Reason For Visit: OBSTRUCTIVE ARF, NEPHROLITHIASIS Discharge Diagnosis: Urolithiasis Activity: Per Instructions section Non-emergency contact: Primary Care Provider and Urologist Call non-emergency contact if: you have any medication questions, your symptoms worsen and you have a fever Follow-up/Referrals: El Calix DO [Primary Care Provider] - Diet: Regular Addtl Attending Provider Instructions: Hi Mr. Smiley, You admitted to [facility] for kidney stones. This required placement of stents. This improves your symptoms and you will be discharged home. Please follow-up with your primary care doctor within 1 week. Please follow-up with urology as outpatient for further treatment of the stones. New prescriptions: Flomax once daily. Ditropan as needed for abdominal pain. Contact your PCP if you have any worsening symptoms, any questions, or concerns. Visit to ER if symptoms severe or intractable. Pending Studies at Discharge: No Stand-Alone Forms: My [facility], Smoking Cessation Medications and DC Order Prescriptions: Continued aspirin 81 mg tablet,delayed release (DR/EC) 81 mg PO DAILY Qty: 90 3RF bisoprolol fumarate 5 mg tablet 5 mg PO DAILY Qty: 90 3RF simvastatin 40 mg tablet 40 mg PO DAILY Qty: 90 3RF nitroglycerin 0.4 mg tablet, sublingual 0.4 mg sublingual Q5M PRN (Reason: chest pain) Qty: 14 2RF Rx Instructions: do not exceed 3 doses per episode ibuprofen 200 mg Tablet 400 mg PO Q6H PRN (Reason: Pain) Admission Data Admit Date/Time: 11/13/22 11:54 Attending Provider: Jairo Haro Admit Provider: Jairo Haro Primary Care Provider: El Calix Other Providers: [place] Person ; Jairo Haro
[2022-11-14] MEDS ORDERED: SODIUM CHLORIDE 0.9% 1000ML 1,000 ML IV SCH (13:45)
[2022-11-14] MEDS: cefTRIAXone SODIUM 2,000 MG in DEXTROSE 5% 50 ML IV SCH (14:43)
--- NOTE | 2022-11-14 15:42 | Hospitalist Progress Note ---
Date of Service November 14, 2022 Assessment & Plan (1) Acute renal failure due to urinary obstruction: Plan: 57-year-old male with a past medical history of CAD s/p stent, hypertension, nephrolithiasis, splenectomy, hyperlipidemia who presents for worsening R>L back and flank pain. Requires Ukranian freight checker service. Urinary obstruction - Admission, with leukocytosis of 27.[address] a/p showing multiple distal ureteral stones with bilateral moderate hydro ureteral nephrosis. Cannot exclude superimposed pyonephritis. Possible reactive lymph nodes. - Urology consulted. Patient is status post bilateral stent placement on 11/13. Urology plans for outpatient follow-up for nephrolithiasis management. Acute renal failure - Most likely from obstructive etiology. Creatinine 6.70 admission, downtrending to 4s. Continue to trend BMP. No maintenance IV fluids at this time given tolerating PO and less likely prerenal cause. Complicated UTI Leukocytosis 27.2 at admission. In setting of obstruction. See CT findings above. Continue Rocephin. Follow urine culture. Thrombocytosis - May be reactive in setting of UTI. PCP to follow. CAD, history of PCI Continue home baby asa and simvastatin. PCP to consider conversion to high intensity statin. HTN - Continue home bisoprolol. Valsartan held in setting of JUN. Continue simvastatin 40 mg daily? Benefit of conversion high-dose on discharge. 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 I agree with the impression and plan in the resident documentation, and as summarized below. EXAM 132/79, 61, 18, 36.7, 96% room air No distress; ambulatory in room Heart regular rate and rhythm Lungs clear No CVA tenderness DATA Labs White blood cell count 22.39, platelet count 804 Sodium 135, BUN 57, creatinine 4.51 Micro Urine cultures pending IMPRESSION & PLAN Bilateral ureteral calculi Acute renal failure, showing improvement Postop day #1 status post cystoscopy, bilateral retrograde pyelogram and bilateral ureteral stent placement Encourage p.o. fluids Monitor BMP; suspect this was all postrenal and should improve rapidly post obstruction Continue current antibiotics pending urine culture results Thrombocytosis Question related to infection Trend Additional per resident documentation Subjective Patient is feeling better. This morning, he did have less than normal urine output via urinal, but this improved in the afternoon. He denies fever or chills. He ate breakfast and lunch. [employer] freight checker service used: ID: [id number]. Review of Systems Review of Systems: All systems reviewed & are unremarkable except as noted in HPI & below Physical Exam Physical Exam: General: Grossly A&O. NAD. Cooperative. HEENT: Atraumatic, normocephalic. Pulm: CTAB. -wheezes, -rales, -rhonchi. No respiratory distress. Cardiac: RRR, -mrg. Abdominal: Nontender, nondistended, soft. Back: No CVA tenderness palpation. Results & Data Results & Data Vital Signs (Past 12 Hours) Vital Signs Temp Pulse Resp BP Pulse Ox O2 Del Method 11/14/22 12:01 36.6 C 65 19 129/78 95 Room Air 11/14/22 07:41 36.7 C 71 18 115/73 95 Room Air Resident Activity Tracking Resident Involvement: Resident Care Provided Care Provided: Adult Hospital Medicine
[2022-11-14] MEDS: SODIUM CHLORIDE 0.9% 1000ML 1,000 ML IV SCH (18:41)
[2022-11-15] MEDS: SODIUM CHLORIDE 0.9% 1000ML 1,000 ML IV SCH ×3 (02:08→19:37)
[2022-11-15 05:24] LABS: Basophils # (auto) 0.26 K/uL (0-0.2); Basophils % (auto) 1.2 %; Eosinophils # (auto) 0.88 K/uL (0-0.50); Eosinophils % (auto) 4.1 %; Hematocrit (blood only) 46.1 % (42.0-52.0); Hemoglobin 15.3 g/dl (14.0-18.0); Immature Granulocytes # (auto) 0.16 K/uL (0.01-0.20); Immature Granulocytes % (auto) 0.7 %; Lymphocytes # (auto) 2.97 K/uL (1.2-3.4); Lymphocytes % (auto) 13.8 %; Mean Corpuscular Hemoglobin 29.5 pg (25.0-34.0); Mean Corpuscular Hgb Conc 33.2 g/dL (32.0-36.0); Mean Corpuscular Volume 88.8 fL (80.0-100.0); Mean Platelet Volume 11.3 fL (9.4-12.4); Monocytes # (auto) 2.04 K/uL (0.11-0.59); Monocytes % (auto) 9.5 %; Neutrophils # (auto) 15.26 K/uL (1.40-6.50); Neutrophils % (auto) 70.7 %; Nucleated RBC # (auto) 0.02 K/uL (0-0.12); Nucleated RBC % (auto) 0.1 %; Platelet Count 759 K/uL (130-400); RDW Coefficient of Variation 13.8 % (11.5-14.5); RDW Standard Deviation 44.1 fL (36.4-46.3); Red Blood Count 5.19 M/uL (4.70-6.10); White Blood Count 21.57 K/ul (4.8-10.8)
[2022-11-15 05:50] LABS: BUN Creatinine Ratio 19.1 (10-20); Calcium 9.2 mg/dl (8.6-10.3); Creatinine Clr Calc Pharmacy 42.2 ml/min; Est GFR (African American) 36.2 ml/min; Est GFR (Non-African American) 31.2 ml/min; Magnesium 1.6 mg/dl (1.7-2.4); Potassium 4.8 mmol/L (3.5-5.1)
--- NOTE | 2022-11-15 06:03 | Discharge Summary ---
Date of Service November 15, 2022 Principal Diagnosis acute renal failure secondary to obstruction Discharge Data Allergies Allergy/AdvReac Type Severity Reaction Status Date / Time No Known Allergies Allergy Verified 11/13/22 12:04 Consultations 11/13/22 11:54 Consult Urology Stat 11/13/22 12:00 ED Decision to Admit Stat Procedures Performed Operation Date: 11/13/22 13:15 Actual Procedures p Cystoscopy, Bilateral Retrograde Pyelogram, Bilateral stent Placement(Bilate ral) - Sekou Lee, Ordered Studies 11/13/22 FL retrograde includes kub Routine 11/13/22 10:43 CT abd pelvis wo con Stat Hospital Course (1) Acute renal failure due to urinary obstruction: 57-year-old male with a past medical history of CAD s/p stent, hypertension, nephrolithiasis, splenectomy, hyperlipidemia who presents for worsening R>L back and flank pain. Requires Ukranian vice president of customer service service. Urinary obstruction - Admission, with leukocytosis of 27.[address] a/p showing multiple distal ureteral stones with bilateral moderate hydro ureteral nephrosis. Cannot exclude superimposed pyonephritis. Possible reactive lymph nodes. - Urology consulted. Patient is status post bilateral stent placement on 11/13. Urology plans for outpatient follow-up for nephrolithiasis management. Acute renal failure - Most likely from obstructive etiology. Creatinine 6.70 admission, downtrending to 4s. Continue to trend BMP. No maintenance IV fluids at this time given tolerating PO and less likely prerenal cause. Complicated UTI Leukocytosis 27.2 at admission. In setting of obstruction. See CT findings above. Continue Rocephin. Follow urine culture. Thrombocytosis - May be reactive in setting of UTI. PCP to follow. CAD, history of PCI Continue home baby asa and simvastatin. PCP to consider conversion to high intensity statin. HTN - Continue home bisoprolol. Valsartan held in setting of JUN. Continue simvastatin 40 mg daily? Benefit of conversion high-dose on discharge. 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 (2) Complicated UTI (urinary tract infection): (3) CAD (coronary artery disease): (4) Hx of splenectomy: (5) Hypertension: (6) HLD (hyperlipidemia): (7) Thrombocytosis: Discharge Plan Discharge Items Patient Disposition: Home - Self-Care Reason For Visit: OBSTRUCTIVE ARF, NEPHROLITHIASIS Discharge Diagnosis: Urolithiasis Activity: Per Instructions section Non-emergency contact: Primary Care Provider and Urologist Call non-emergency contact if: you have any medication questions, your symptoms worsen and you have a fever Follow-up/Referrals: El Calix DO [Primary Care Provider] - Diet: Regular Addtl Attending Provider Instructions: Hi Mr. Smiley, You admitted to [facility] for kidney stones. This required placement of stents. This improves your symptoms and you will be discharged home. Please follow-up with your primary care doctor within 1 week. Please follow-up with urology as outpatient for further treatment of the stones. New prescriptions: Flomax once daily. Ditropan as needed for abdominal pain. Contact your PCP if you have any worsening symptoms, any questions, or concerns. Visit to ER if symptoms severe or intractable. Pending Studies at Discharge: No Stand-Alone Forms: My [facility], Smoking Cessation Medications and DC Order Prescriptions: Continued aspirin 81 mg tablet,delayed release (DR/EC) 81 mg PO DAILY Qty: 90 3RF bisoprolol fumarate 5 mg tablet 5 mg PO DAILY Qty: 90 3RF simvastatin 40 mg tablet 40 mg PO DAILY Qty: 90 3RF nitroglycerin 0.4 mg tablet, sublingual 0.4 mg sublingual Q5M PRN (Reason: chest pain) Qty: 14 2RF Rx Instructions: do not exceed 3 doses per episode ibuprofen 200 mg Tablet 400 mg PO Q6H PRN (Reason: Pain) Admission Data Admit Date/Time: 11/13/22 11:54 Attending Provider: Jairo Haro Admit Provider: Jairo Haro Primary Care Provider: El Calix Other Providers: [place] Person Paul Resident Activity Tracking Resident Involvement: Resident Care Provided Care Provided: Adult Hospital Medicine
--- NOTE | 2022-11-15 07:54 | Urology Progress Note ---
Date of Service November 15, 2022 Assessment & Plan (1) Acute renal failure (ARF): (2) Bilateral ureteral calculi: Plan 57-year-old male from [facility] with history of kidney stones presented to the emergency department 11/13/22 with worsening back pain, hematuria and difficulty voiding and has been admitted for bilateral obstructing stones and acute renal failure. Clinically improving. Labs continue to downtrend. Patient denies any complaints Agree with discharge home later today Urology has sent a message to schedule outpatient follow-up to discuss stone treatment. Would recommend sending home with several days of antibiotics, Bactrim DS reasonable given urine culture is still pending and he does have a leukocytosis Admission and Anticipated Discharge Date Admission Date: November 13, 2022 Subjective No acute issues overnight. Afebrile with stable vitals. Leukocytosis downtrending this morning. Creatinine continues to downtrend. Patient denies any complaints through therapeutic consultant. Plan for discharge home today. Review of Systems Review of Systems: 14 point review of systems negative outside of what is listed above in HPI Physical Exam Physical Exam: General: Alert and oriented, no acute distress HEENT: Normocephalic, mucous membranes moist Pulmonary: Nonlabored respirations Abdomen: Nondistended Extremities: Moves all 4 spontaneously Neuro: No gross deficits Skin: Warm, dry, no rashes noted Results & Data Vital Signs (Past 12 Hours) Vital Signs Temp Pulse Pulse Resp BP Pulse Ox O2 Del Method 11/15/22 07:14 58 L 11/15/22 03:45 36.8 C 60 18 125/79 94 Room Air 11/14/22 23:50 64 11/14/22 23:11 36.6 C 63 18 143/92 H 95 Room Air 11/14/22 20:18 Room Air PG Care Time/CCT Total # of Minutes Spent Total Time Spent with Patient: Total time spent is greater than 50% in coordination of care (as documented) at patient's floor/unit and/or counseling patient: Coding Level of Care Code 50775 SUB INP/OBS CARE 2/35MIN Diagnoses Acute renal failure (ARF) N17.9 Acute renal failure type: unspecified Bilateral ureteral calculi N20.1 (1) Acute renal failure (ARF) Acute renal failure type: unspecified Qualified Code(s): N17.9 - Acute kidney failure, unspecified
[2022-11-15] MEDS: MAGNESIUM SULFATE / D5W 1 GM/100 ML BAG IV SCH ×2 (08:09→09:58)
[2022-11-15] MEDS: SIMVASTATIN 40 MG TAB PO SCH (08:43)
[2022-11-15] MEDS: BISOPROLOL FUMARATE 5 MG TAB PO SCH (08:43)
[2022-11-15] MEDS: ASPIRIN 81 MG ECTAB PO SCH (08:43)
--- NOTE | 2022-11-15 10:07 | Hospitalist Progress Note ---
Date of Service November 15, 2022 Assessment & Plan (1) Acute renal failure due to urinary obstruction: Plan: 57-year-old male with a past medical history of CAD s/p stent, hypertension, nephrolithiasis, splenectomy, hyperlipidemia who presents for worsening R>L back and flank pain. Requires Ukranian die developer service. Urinary obstruction - Admission, with leukocytosis of 27.[address] a/p showing multiple distal ureteral stones with bilateral moderate hydro ureteral nephrosis. Cannot exclude superimposed pyonephritis. Possible reactive lymph nodes. - Urology consulted. Patient is status post bilateral stent placement on 11/13. Urology plans for outpatient follow-up for nephrolithiasis management. Daily Flomax and prn Ditropan. Acute renal failure - Most likely from obstructive etiology. Creatinine 6.70 admission, downtrending to low 2s. Continue to trend BMP. Nephro recommends gentle fluids. Complicated UTI Leukocytosis 27.2 at admission, still at 21. In setting of obstruction. See CT findings above. Continue Rocephin. Awaiting urine culture. - Will broaden workup for the leukocytosis. Check procal in AM. Consider rectal exam to check for prostate ttp. Thrombocytosis - May be reactive in setting of UTI. Peripheral smear pending. CAD, history of PCI Continue home baby asa and simvastatin. PCP to consider conversion to high intensity statin. HTN - Continue home bisoprolol. Valsartan held in setting of JUN. Continue simvastatin 40 mg daily? Benefit of conversion high-dose on discharge. 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 NSS 125mL/hr Disposition: PCU->med surg CODE STATUS: Full code (2) Complicated UTI (urinary tract infection): (3) CAD (coronary artery disease): (4) Hx of splenectomy: (5) Hypertension: (6) HLD (hyperlipidemia): (7) Thrombocytosis: Admission and Anticipated Discharge Date Admission Date: November 13, 2022 Supervising Physician Co-Signing Physician Notes ATTESTATION I also saw the patient and confirmed rossi portions of the history and exam. I agree with the impression and plan in the resident documentation, and as summarized below. EXAM 122/76, 61, 18, 36.7, 96% on room air No distress; ambulatory in room Heart regular rate and rhythm Lungs clear No CVA tenderness DATA Labs White blood cell 21.57, platelet count 759; both slight downward trend Sodium 136, potassium 4.8. BUN 43, creatinine 2.25; both improved Micro Urine culture, preliminary shows no growth. IMPRESSION & PLAN Bilateral ureteral calculi Acute renal failure, showing improvement Postop day #2 status post cystoscopy, bilateral retrograde pyelogram and bilateral ureteral stent placement Continue IV fluids, NSS 125 cc/h Creatinine continues to improve; would like to see less than 2 prior to discharge Continue current antibiotics pending urine culture results Thrombocytosis Question related to infection Check peripheral smear Continue to trend Additional per resident documentation Subjective Still w/ mild dysuria. Yesterday, during urination, he had bilat flank pain. Ukranian translation service used: ID [id number]. Afternoon: Still with dysuria. Review of Systems Review of Systems: All systems reviewed & are unremarkable except as noted in HPI & below Physical Exam Physical Exam: General: Grossly A&O. NAD. Cooperative. HEENT: Atraumatic, normocephalic. Pulm: CTAB. -wheezes, -rales, -rhonchi. No respiratory distress. Cardiac: RRR, -mrg. Abdominal: Nontender, nondistended, soft. Back: No CVA tenderness. Results & Data Results & Data Vital Signs (Past 12 Hours) Vital Signs Temp Pulse Pulse Resp BP Pulse Ox O2 Del Method 11/15/22 08:01 37.0 C 61 18 138/83 94 Room Air 11/15/22 07:14 58 L 11/15/22 03:45 36.8 C 60 18 125/79 94 Room Air 11/14/22 23:50 64 11/14/22 23:11 36.6 C 63 18 143/92 H 95 Room Air Resident Activity Tracking Resident Involvement: Resident Care Provided Care Provided: Adult Hospital Medicine
[2022-11-15] MEDS: cefTRIAXone SODIUM 2,000 MG in DEXTROSE 5% 50 ML IV SCH (14:02)
[2022-11-16] MEDS: SODIUM CHLORIDE 0.9% 1000ML 1,000 ML IV SCH (04:59)
[2022-11-16 06:37] LABS: Basophils # (auto) 0.38 K/uL (0-0.2); Eosinophils # (auto) 1.25 K/uL (0-0.50); Eosinophils % (auto) 6.7 %; Hematocrit (blood only) 46.7 % (42.0-52.0); Hemoglobin 15.6 g/dl (14.0-18.0); Immature Granulocytes # (auto) 0.11 K/uL (0.01-0.20); Immature Granulocytes % (auto) 0.6 %; Lymphocytes # (auto) 3.08 K/uL (1.2-3.4); Lymphocytes % (auto) 16.5 %; Mean Corpuscular Hemoglobin 29.7 pg (25.0-34.0); Mean Corpuscular Hgb Conc 33.4 g/dL (32.0-36.0); Mean Corpuscular Volume 88.8 fL (80.0-100.0); Mean Platelet Volume 11.5 fL (9.4-12.4); Monocytes # (auto) 2.01 K/uL (0.11-0.59); Monocytes % (auto) 10.8 %; Neutrophils # (auto) 11.83 K/uL (1.40-6.50); Neutrophils % (auto) 63.4 %; Nucleated RBC # (auto) 0.02 K/uL (0-0.12); Nucleated RBC % (auto) 0.1 %; Platelet Count 817 K/uL (130-400); RDW Standard Deviation 44.9 fL (36.4-46.3); Red Blood Count 5.26 M/uL (4.70-6.10); White Blood Count 18.66 K/ul (4.8-10.8)
[2022-11-16 07:05] LABS: BUN Creatinine Ratio 17.1 (10-20); Calcium 9.4 mg/dl (8.6-10.3); Creatinine Clr Calc Pharmacy 64.9 ml/min; Est GFR (Non-African American) 52.6 ml/min
[2022-11-16] MEDS: ASPIRIN 81 MG ECTAB PO SCH (09:12)
[2022-11-16] MEDS: SIMVASTATIN 40 MG TAB PO SCH (09:13)
[2022-11-16] MEDS: BISOPROLOL FUMARATE 5 MG TAB PO SCH (09:13)
--- NOTE | 2022-11-16 10:05 | Discharge Summary ---
Date of Service November 16, 2022 Admission HPI Per Admitting Provider Jose Alberto is a 57-year-old male [place] refugee who speaks Gabonese requiring translation assistance with a past medical history of CAD s/p PCI, hypertension, nephrolithiasis, splenectomy, hyperlipidemia who presents for worsening back and flank pain left greater than the right worsening over the last 48 hours. Patient has declined translation services and wishes for her sister to translate. Pt reports came to [place] in [place], is a refugee. Has been told he has kidney rocks int h epast, but no obstructive problems. Had ultrasound in June and was found to have kidney stones which were large, but nonosbtructive. Sees PCP at [facility]. Current symptoms include pain in the back with blood in the urine started about 3 days ago. Progressively worsening pain in the back, flank, and low abdomen worsening over the last 2 days. No fevers, +nausea, +vomiting, +shaking chills last night. No diarrhea. yesterday was able to pee, stopped being this morning an dincreased pain. Small amounts of blood passing. Hx of CAD with PCI. Had 1 stend 2017 in [facility]. Has a stent card at home. - Was on bisprolol, aspirin, simvastatin, valsartan. 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 Did not take medications this morning Surgical History: Reviewed. splenectomy post traumatic. Family history: Reviewed Allergies: Reviewed. NKDA. Social History: No tobacco product use, no alochol use. Code Status: Full Code Admission Exam Per Admitting Provider General: A&Ox3. NAD. Cooperative. Patient is non-Gabonese speaking, speaks Gabonese. Patient declines stonemason supervisor services, prefers translation per family who is at bedside. HEENT: Atraumatic, normocephalic. Vision/hearing grossly intact Pulm: CTAB A&P. Trace basilar crackles, otherwise-wheezes, -rales, -rhonchi. Symmetrical chest rise. No increased work of breathing. No respiratory distress. Cardiac: RRR, -mrg. Radial pulses intact and symmetrical. Abdominal: Midline scar from past splenectomy well-healed. Tender to palpation in right lower quadrant. Upper quadrants nontender. Abdomen is soft and without rebound/guarding. Flank pain bilaterally right greater than left Extremities: Warm, dry. No pitting edema Principal Diagnosis Acute Renal Failure due to Bilateral Obstructing Nephrolithiasis Discharge Exam General: A&Ox3. NAD. Cooperative. HEENT: Atraumatic, normocephalic. Pulm: CTAB A&P. -wheezes, -rales, -rhonchi. Symmetrical chest rise. No increase work of breathing. No respiratory distress. Cardiac: RRR, -mrg. Radial pulses intact and symmetrical. Abdominal: soft, non-tender, non-distended, BS x 4 Back: no CVA tenderness Skin: warm, dry, no rash Discharge Data Allergies Allergy/AdvReac Type Severity Reaction Status Date / Time No Known Allergies Allergy Verified 11/13/22 12:04 Consultations 11/13/22 11:54 Consult Urology Stat 11/13/22 12:00 ED Decision to Admit Stat Procedures Performed Operation Date: 11/13/22 13:15 Actual Procedures p Cystoscopy, Bilateral Retrograde Pyelogram, Bilateral stent Placement(Bilateral) - Sekou Lee, Ordered Studies 11/13/22 FL retrograde includes kub Routine 11/13/22 10:43 CT abd pelvis wo con Stat Hospital Course (1) Acute renal failure due to urinary obstruction: 57-year-old male with a past medical history of CAD s/p stent, hypertension, nephrolithiasis, splenectomy, hyperlipidemia who was admitted to [facility] from 11/13 - 11/16 for acute renal failure 2/2 to bilateral obstructing nephrolithiasis. Acute Renal Failure 2/2 to Bilateral Obstructing Nephrolithiasis, resolved Initial Cr elevated at 6.7, and with above-mentioned findings per CT A/P. S/p bilateral stent placement on 11/13, with resultant significant improvement in kidney function. - started on Ceftriaxone 2g IV Q24H on 11/13, at discharge will transition to Cefdinir 300mg PO BID x3 days - note: urine culture negative; abx being continued per Urology recommendations for ppx in setting of nephrolithiasis - recommend follow up with PCP in 2-3 days, with repeat BMP at that time - f/u with Urology as outpatient for stent management Leukocytosis; Thrombocytosis WBC 27 on admission, and downtrended to 18 on day of discharge. Also platelets remained in 800s throughout hospitalization --> Suspect due to acute urinary tract inflammation in context of above, on top of chronic leukocytosis/thrombocytosis in setting of asplenia. 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, abdomen surgical site well-healed No complications of this per patient - f/u with PCP regarding recommended vaccinations Total Time Total Time Spent Total Time Spent (In Minutes): I spent 25 minutes seeing the patient, reviewing data, and dictating Discharge Plan Discharge Items Patient Disposition: Home - Self-Care Reason For Visit: OBSTRUCTIVE ARF, NEPHROLITHIASIS Discharge Diagnosis: Acute Renal Failure due to Bilateral Obstructive Nephrolithiasis Activity: Per Instructions section Non-emergency contact: Primary Care Provider and Urologist Call non-emergency contact if: you have any medication questions, your symptoms worsen and you have a fever Follow-up/Referrals: El Calix DO [Primary Care Provider] - 11/19/22 11:00 am (please schedule f/u within 2-3 days of discharge) Diet: Regular Addtl Attending Provider Instructions: Hi Mr. Smiley, You were admitted to [facility] for kidney stones. This required placement of stents. This improved your symptoms and you will be discharged home. Please follow-up with your primary care doctor within 1 week. Please follow-up with urology as outpatient for further treatment of the stents. You will continue taking Cefdinir (an antibiotic) twice per day for the next 3 days. Contact your PCP if you have any worsening symptoms, any questions, or concerns. Visit to ER if symptoms severe or intractable. Pending Studies at Discharge: No Stand-Alone Forms: My [facility], Smoking Cessation Medications and DC Order Prescriptions: New cefdinir 300 mg capsule 300 mg PO BID 3 Days Qty: 6 0RF Continued aspirin 81 mg tablet,delayed release (DR/EC) 81 mg PO DAILY Qty: 90 3RF bisoprolol fumarate 5 mg tablet 5 mg PO DAILY Qty: 90 3RF simvastatin 40 mg tablet 40 mg PO DAILY Qty: 90 3RF nitroglycerin 0.4 mg tablet, sublingual 0.4 mg sublingual Q5M PRN (Reason: chest pain) Qty: 14 2RF Rx Instructions: do not exceed 3 doses per episode ibuprofen 200 mg Tablet 400 mg PO Q6H PRN (Reason: Pain) Discharge Orders: Discharge Order (Routine); Ordered 11/16/22 Ordered By: Chico Conway Admission Data Admit Date/Time: 11/13/22 11:54 Attending Provider: Merrill Albarado Admit Provider: Jairo Haro Primary Care Provider: El Calix Other Providers: [place] Person ; Jairo Haro Other Interventions: Discharge Summary Assessment (RN) Last Done: 11/16/22 11:40 Supervising Physician Co-Signing Physician Notes ATTESTATION I also saw the patient and confirmed rossi portions of the history and exam. I agree with the impression and plan in the resident documentation, and as summarized below. He is without complaint this afternoon. Fortunately, his renal function continues to improve. In reviewing the chart, patient is status post splenectomy, and this likely explains his thrombocytosis and slow to resolve leukocytosis. EXAM 122/71, 57, 16, 37, 96% room air No distress; ambulatory in room Heart regular rate and rhythm Lungs clear No CVA tenderness DATA Labs White blood cell count 18.66, hemoglobin 15.6, platelet count 817 Sodium 138, potassium 5.0, BUN 25, creatinine 1.46 Micro Urine culture, no growth. IMPRESSION & PLAN Bilateral ureteral calculi Acute renal failure, showing improvement Postop day #3 status post cystoscopy, bilateral retrograde pyelogram and bilateral ureteral stent placement Okay to discharge today PCP follow-up with BMP in about 1 week Outpatient antibiotics as noted Thrombocytosis/Leukocytosis (in setting of asplenia) Question related to infection, although suspect this is more likely related to his history of splenectomy Peripheral smear is pending Would recommend outpatient follow-up to monitor Additional per resident documentation Resident Activity Tracking Resident Involvement: Resident Care Provided Care Provided: Adult Hospital Medicine
[2022-11-16] MEDS ORDERED: CEFDINIR 300 MG CAP PO STA (11:20)
== END 2022-11-16 13:08 | disposition home or self-care (01) | DRG 660 ==
LOC: ED 09:43 → SUATTDRO 11:54 → 4W 11:54 → 3W 11-15 22:00